=== PATIENT | female | born 1925 | race Asian ===

== ENCOUNTER 2016-03-25 12:28 | Outpatient (RCR) | payer OTHER, MEDICAID ==
[2016-03-25 13:42] LABS: HEMOGLOBIN 9.6 g/dL (12.0-16.0); RED BLOOD CELL COUNT(AUTO) 3.15 MIL/uL (4.2-6.2); WHITE BLOOD COUNT (AUTO) 9.6 K/uL (4.8-10.8)
[2016-03-25 13:43] LABS: BASOPHILS % (AUTO) 0.3 % (0.0-2.0); EOSINOPHILS # (AUTO) 0.3 K/uL (0.0-0.4); EOSINOPHILS % (AUTO) 3.6 % (0.0-4.0); HEMATOCRIT 28.1 % (36-48); LYMPHOCYTES # (AUTO) 1.8 K/uL (1.0-5.5); LYMPHOCYTES % (AUTO) 18.7 % (20.5-51.5); MEAN CORPUSCULAR HEMOGLOBIN 31 pg (27-31); MEAN CORPUSCULAR HGB CONC 34 % (32-36); MEAN CORPUSCULAR VOLUME 89 fL (79.0-98.0); MONOCYTES # (AUTO) 0.6 K/uL (0.0-1.0); MONOCYTES % (AUTO) 6.2 % (1.7-9.3); NEUTROPHILS # (AUTO) 6.9 K/uL (1.8-7.7); NEUTROPHILS % (AUTO) 71.2 % (40.0-70.0); PLATELET COUNT (AUTO) 149 K/uL (130-430); RED CELL DISTRIBUTION WIDTH 13.6 % (9.0-15.0)
[2016-03-25 13:57] LABS: ALANINE AMINOTRANSFERASE 19 U/L (12-78); ALBUMIN 2.9 g/dL (3.4-4.8); ANION GAP 6 (5-15); ASPARTATE AMINOTRANSFERASE 29 U/L (10-37); C-REACTIVE PROTEIN QUANT 2.8 mg/dL (0-0.5); CALCIUM 9.2 mg/dL (8.4-11.0); CHLORIDE 110 mmol/L (98-107); CREATININE 2.56 mg/dL (0.55-1.30); GLUCOSE 188 mg/dL (70-99); POTASSIUM 3.9 mmol/L (3.5-5.1); SODIUM SERUM 138 mmol/L (136-145); TOTAL BILIRUBIN 0.3 mg/dL (0.0-1.0); TOTAL PROTEIN, SERUM 7.5 g/dL (6.4-8.3); UREA NITROGEN, BLOOD 50 mg/dL (8-21)
== END 2016-04-19 | disposition home or self-care (01) ==
LOC: SLB 12:28
PROVIDERS: ATTEND Internal Medicine Cardiovascular Disease
DX: T84.63XD Infection and inflammatory reaction due to internal fixation device of spine, subsequent encounter (principal)
CPT/HCPCS: 36415; 80053; 83036; 85025; 86140